=== PATIENT | male | born 1995 | race Caucasian/White ===

== ENCOUNTER 2022-07-02 16:15 | Outpatient (CLI) | payer MEDICAID ==
[2022-07-02 23:36] LABS: CHLAMYDIA TRACHOMATIS DNA NEGATIVE (NEGATIVE); NEISSERIA GONORRHOEAE DNA NEGATIVE (NEGATIVE)
[2022-07-04 05:11] LABS: RPR Non Reactive (Non Reactive)
[2022-07-04 06:10] LABS: HIV SCREEN 4TH GENERATION Non Reactive (Non Reactive)
[2022-07-04 07:10] LABS: HCV AB <0.1 s/co ratio (0.0-0.9); HSV 1 IGG TYPE SPEC 2.98 index (0.00-0.90); HSV 2 IGG TYPE SPEC <0.91 index (0.00-0.90)
== END 2022-07-02 16:30 | disposition home or self-care (01) ==
LOC: LAB.N 16:15
PROVIDERS: ATTEND Family Medicine
DX: N48.9 Disorder of penis, unspecified (principal)
CPT/HCPCS: 36415; 86592; 86695; 86696; 86803; 87255; 87389; 87491; 87591; 87661